=== PATIENT | male | born 2005 | race Two or more races ===

== ENCOUNTER 2024-12-07 22:36 | Emergency (ER) | payer OTHER ==
[~2024-12-07] VITALS: Ht 175.3 cm; Wt 74.8 kg
[2024-12-07 22:40] VITALS: BP 154/79; PULSE 68; RESP 19; O2SAT 100
[2024-12-07] MEDS ORDERED: ACET500T58 PO (22:57)
[2024-12-07] MEDS ORDERED: CEPH500C PO (22:57)
--- NOTE | 2024-12-07 22:57 | ED.PDOC ---
HPI Comments 19-YEAR-OLD MALE PRESENTS TO ER WITH COMPLAINTS OF LACERATION TO LEFT HAND X1 DAY. PATIENT REPORTS THAT HE WAS OPENING A "CAN OF BEANS" TONIGHT WHEN THE CAN SLIPPED AND MADE IMPACT WITH THE WEBSPACE OF HIS LEFT 1ST AND 2ND FINGERS AND SUSTAINED A "LACERATION" TO THIS REGION AT THAT TIME. REPORTS HE WASHED THE AREA WITH SOAP/WATER AND APPLIED A TOPICAL OVER THE COUNTER "SKIN GLUE" WITH SOME RELIEF. PATIENT PRESENTS TO ER WITH A CLOSED 1 CM WOUND NOTED TO WEBSPACE OF LEFT 1ST AND 2ND FINGERS WITHOUT BLEEDING. HE IS UNSURE WHEN HIS LAST TETANUS SHOT WAS. DENIES NUMBNESS/TINGLING/FOREIGN BODY SENSATION OR ANY FURTHER SYMPTOMS/COMPLAINTS Chief Complaint: Laceration Time Seen by MD: 22:52 Primary Care Provider: UNKNOWN Reviewed Notes: Nurses Notes, Medications, Allergies Allergies: Coded Allergies: NO KNOWN ALLERGIES (Unverified , 12/07/24) Home Meds Active Scripts Acetaminophen (Acetaminophen) 500 Mg Tab, 500 MG PO Q4HPRN, #30 TAB 0 Refills Prov:WALTER IRWIN 12/07/24 Cephalexin Monohydrate (Cephalexin) 500 Mg Cap, 1 CAP PO BID for 7 Days, #14 CAP 0 Refills Prov:WALTER IRWIN 12/07/24 Information Source: Patient Mode of Arrival: Ambulatory Complexity: Simple Laceration Length (cm): 1 Skin Type: Linear Past Medical History PAST MEDICAL HISTORY: Denies Surgical History: Denies all surgeries Family History Family History: Unknown Social History Lives In: Home Constitutional: denies: chills, diaphoresis, fatigue, fever, malaise, sweats, weakness, others EENTM: denies: blurred vision, double vision, ear bleeding, ear discharge, ear drainage, ear pain, ear ringing, eye pain, eye redness, hearing loss, mouth pain, mouth swelling, nasal discharge, nose bleeding, nose congestion, nose pain, photophobia, tearing, throat pain, throat swelling, voice changes, others Respiratory: denies: cough, hemoptysis, orthopnea, SOB at rest, shortness of breath, SOB with excertion, stridor, wheezing, others Cardiovascular: denies: chest pain, dizzy spells, diaphoresis, Dyspnea on exertion, edema, irregular heart beat, left arm pain, lightheadedness, palpitations, PND, syncope, others Gastrointestinal: denies: abdomen distended, abdominal pain, blood streaked bowels, constipated, diarrhea, dysphagia, difficulty swallowing, hematemesis, melena, nausea, poor appetite, poor fluid intake, rectal bleeding, rectal pain, vomiting, others Genitourinary: denies: burning, dysuria, flank pain, frequency, hematuria, incontinence, penile discharge, penile sore, pain, testicle pain, testicle swelling, urgency, others Neurological: denies: dizziness, fainting, headache, left sided numbness, left sided weakness, numbness, paresthesia, pre-existing deficit, right sided numbness, right sided weakness, seizure, speech problems, tingling, tremors, weakness, others Musculoskeletal: denies: back pain, gout, joint pain, joint swelling, muscle pain, muscle stiffness, neck pain, others Integumetry: reports: others ( STATED IN HPI) Allergic/Immunocompromised: denies: Difficulty Healing, Frequent Infections, Hives, Itching, others Hematologic/Lymphatic: denies: anemia, blood clots, easy bleeding, easy bruising, swollen glands, others Endocrine: denies: excessive hunger, excessive sweating, excessive thirst, excessive urination, flushing, intolerance to cold, intolerance to heat, unexplained weight gain, unexplained weight loss, others Psychiatric: denies: anxiety, bipolar disorder, depression, hopeless, panic disorder, schizophrenia, sleepless, suicidal, others Physical Exam General Appearance: No Apparent Distress HEENT: PERRL/EOMI Neck: Full Range of Motion, Non-Tender, Normal Respiratory: Chest Non-Tender, Lungs Clear, No Accessory Muscle Use, No Respiratory Distress, Normal Breath Sounds Cardiovascular: No Murmur, No Gallop, Regular Rate/Rhythm Breast Exam: Deferred Gastrointestinal: NOT DONE Genitalia: Deferred Pelvic: Deferred Rectal: Deferred Extremities: Normal capillary refill, Normal range of motion Neurologic: Alert, white metal corrosion proofer II-XII nml as Tested, No Motor Deficits, Normal Affect, Normal Mood, No Sensory Deficits Cerebellar Function: Normal Reflexes: Normal Skin: Dry, Warm, Other (TOPICAL ADHESIVE NOTED TO A CLOSED 1 CM WOUND NOTED TO WEBSPACE OF LEFT 1ST AND 2ND FINGERS WITHOUT BLEEDING. PATIENT ABLE TO FULLY MOVE ALL FINGERS OF LEFT HAND. NO FOREIGN BODY/SIGNS OF INFECTION APPRECIATED. PULSES INTACT) Peripheral Pulses: 2+ Radial (R), 2+ Radial (L), 2+ Brachial (R), 2+ Brachial (L) Lymphatic: No Adenopathy Was a procedure done? Was a procedure done?: No Sedation Sedation?: No Differential diagnosis Generic Laceration: Fracture, Retained Foriegn Body, Neurovascular Injury, Tendon Injury X-Ray, Labs, Meds, VS Vital Signs Date Time Temp Pulse Resp B/P (MAP) Pulse Ox O2 Delivery O2 Flow Rate FiO2 12/07/24 22:40 98.1 68 19 154/79 (104) 100 Current Medications Medications (Trade) Dose Ordered Sig/Xavier Route Start Time Stop Time Status Last Admin Diphtheria/ Tetanus/Acell Pertussis (Boostrix T-Dap) 0.5 ml ONCE ONCE IM 12/07/24 23:15 12/07/24 23:16 12/07/24 23:15 WOUND CLEANING PERFORMED AT BEDSIDE TDAP 0.5 ML IM ORDERED PATIENT NEUROVASCULARLY INTACT WOUND CARE/CLEANING DISCUSSED AND ADVISED ADVISED TO F/U IN TWO DAYS FOR WOUND CHECK ADVISED TO FOLLOW UP WITH PCP IN 1-2 DAYS PATIENT VERBALIZED UNDERSTANDING AND AGREEABLE WITH CURRENT PLAN OF CARE ADVISED TO RETURN TO ER IMMEDIATELY IF SYMPTOMS WORSEN Time of 1ST Reevaluation: 22:24 Reevaluation 1ST: N/A Patient Education/Counseling: Diagnosis, Treatment, Prognosis, Need For Follow Up Family Education/Counseling: No Family Present Departure 1 Departure Time of Disposition: 22:52 Impression: Primary Impression: Superficial laceration of left hand Qualified Codes: S61.412A - Laceration without foreign body of left hand, initial encounter Disposition: HOME / SELF CARE / HOMELESS Condition: Stable e-Prescriptions Acetaminophen (Acetaminophen) 500 Mg Tab 500 MG PO Q4HPRN, #30 TAB 0 Refills Prov: WALTER IRWIN 12/07/24 Cephalexin Monohydrate (Cephalexin) 500 Mg Cap 1 CAP PO BID for 7 Days, #14 CAP 0 Refills Prov: WALTER IRWIN 12/07/24 Discharged With: Self Critical Care Note Critical Care Time?: No Stability Stability form required: No Heart Score Heart Score: Heart Score Response (Comments) Value History N/A 0 EKG N/A 0 Age N/A 0 Risk Factors N/A 0 Troponin N/A 0 Total 0 WALTER IRWIN Dec 07, 2024 22:57
[2024-12-07] MEDS: TETANUS-DIPTH-ACEL PERTUSSIS 0.5ML SYR Tdap IM ONE (23:15)
== END 2024-12-07 23:22 | disposition home or self-care (01) ==
LOC: ER 22:36
DX: S61.412A Laceration without foreign body of left hand, initial encounter (principal); W01.0XXA Fall on same level from slipping, tripping and stumbling without subsequent striking against object, initial encounter; Y93.89 Activity, other specified; Y92.89 Other specified places as the place of occurrence of the external cause; Y99.8 Other external cause status
CPT/HCPCS: 90471; 90715